=== PATIENT | male | born 1995 ===

== ENCOUNTER → 2024-12-17 | Outpatient (CLI) | payer SELFPAY ==
[2024-12-19 08:43] LABS: HIV 1,2 COMBO ANTIGEN/ANTIBODY Negative (Negative)
[2024-12-20 22:23] LABS: TREPONEMA PALLIDUM,IGG ELISA 1.6 IV (<=0.9)
== END | disposition home or self-care (01) ==
LOC: LAB SHORT 10:08 → LAB 10:08
PROVIDERS: Physician Assistant
DX: N34.1 Nonspecific urethritis (principal)
CPT/HCPCS: 86780; 87389